=== PATIENT | male | born 1955 | race African-American/Black ===

== ENCOUNTER 2019-05-29 21:22 | Emergency (ER) | payer MEDICAID, OTHER ==
[~2019-05-29] VITALS: Ht 165.1 cm; Wt 47.6 kg
--- NOTE | 2019-05-29 21:30 | NUR ---
BIB EMS C/O HEADACHE X1 DAY, ABDOMINAL PAIN WITH N/V/D X4 DAYS. PT WAS SEEN AT [facility] FOR SAME COMPLAINT AND WAS D/C SAME DAY PER PT REPORT. PATIENT A/OX4, BREATHING EVEN AND UNLABORED, NO SOB NOTED, CHANGED INTO GOWN, ATTACHED TO THE B[employer] DES[employer] SALES CONSULTANT. KEPT COMFORTABLE.
--- NOTE | 2019-05-29 22:00 | NUR ---
IV LINE ESTABLISHED ON LEFT AC G18.
[2019-05-29] MEDS ORDERED: ONDANSETRON HCL/PF 4 MG/2 ML VIAL ONE (22:05)
[2019-05-29 22:14] LABS: BASOPHILS % (AUTO) 0.5 % (0.0-2.0); EOSINOPHILS % (AUTO) 1.4 % (0.0-6.0); HEMATOCRIT 38 % (39-51); HEMOGLOBIN 13.1 g/dL (13.5-17.5); LYMPHOCYTES # (AUTO) 2.4 /CMM (0.8-4.8); LYMPHOCYTES % (AUTO) 63.3 % (20.0-44.0); MEAN CORPUSCULAR HGB CONC 34 g/dl (31.0-36.0); MEAN CORPUSCULAR VOLUME 94 fL (80-96); MONOCYTES # (AUTO) 0.6 /CMM (0.1-1.30); MONOCYTES % (AUTO) 16.5 % (2.0-12.0); NEUTROPHILS # (AUTO) 0.7 /CMM (1.8-8.9); NEUTROPHILS % (AUTO) 18.3 % (43.0-81.0); PLATELET COUNT (AUTO) 187 /CMM (150-450); RED BLOOD CELL COUNT(AUTO) 4.09 MIL/uL (4.5-6.0); WHITE BLOOD COUNT (AUTO) 3.8 K/uL (4.3-11.0)
[2019-05-29 22:22] LABS: CALCIUM, SERUM 8.7 mg/dL (8.5-10.1); CREATININE 0.9 mg/dL (0.6-1.3); POTASSIUM 3.9 mmol/L (3.5-5.1)
[2019-05-29] MEDS ORDERED: IV NS 0.9% 250 ML IV ONE (22:25)
[2019-05-29] MEDS ORDERED: CT SWABBABLE VALVE TRANS SET 1 EA INFUS.SET MC ONE (22:25)
[2019-05-29] MEDS ORDERED: IOHEXOL-300 100 ML VIAL IV ONE (22:25)
[2019-05-29 22:27] LABS: ALBUMIN 2.9 g/dL (3.4-5.0); BILIRUBIN,DIRECT 0.3 mg/dL (0.0-0.2); BILIRUBIN,TOTAL 0.4 mg/dL (0.2-1.0); TOTAL PROTEIN, SERUM 7.9 g/dL (6.4-8.2)
[2019-05-29] MEDS ORDERED: ONDANSETRON HCL/PF 4 MG/2 ML VIAL IVP ONE (22:30)
[2019-05-29] MEDS ORDERED: IV NS 0.9% 1,000 ML BAG IV ONE (22:30)
--- NOTE | 2019-05-29 22:50 | NUR ---
PATIENT CAME BACK FROM CT.
[2019-05-29 23:21] LABS: NEUTROPHILS % (MANUAL) 15 (42-76)
[2019-05-29 23:22] LABS: LYMPHOCYTES % (MANUAL) 75 % (16-48); MONOCYTES % (MANUAL) 10 % (0-11.0)
[2019-05-29 23:57] VITALS: BP 172/79
--- NOTE | 2019-05-29 23:58 | NUR ---
IV removed. Catheter intact and site benign. Pressure and 4x4 applied to site. No bleeding noted.Patient given written and verbal discharge instructions. Patient verbalizes understanding of instructions. Patient respirations even & unlabored w/ no acute distress noted. Refuses offer of halfway placement, stating he has a place to go to on sunday. Patient given list of available shelters in surrounding area. All belongings returned to patient. Patient assisted back to w/c and is appropriately clothed for discharge. ID armband removed.
--- NOTE | 2019-05-29 23:58 | NUR ---
Note undone in EDM - 05/30/19 at 0013 by [email or web address] IV removed. Catheter intact and site benign. Pressure and 4x4 applied to site. No bleeding noted.Patient given written and verbal discharge instructions. Patient verbalizes understanding of instructions. Patient is ambulatory with steady gait. Refuses offer of [facility] placement, stating he has a place to go to on sunday. Patient given list of available shelters in surrounding area. All belongings returned to patient. Patient is appropriately clothed for discharge. ID armband removed.
== END 2019-05-30 00:14 | disposition home or self-care (01) ==
LOC: ER 21:24
DX: K52.9 Noninfective gastroenteritis and colitis, unspecified (principal); R51 Headache; I10 Essential (primary) hypertension; E11.9 Type 2 diabetes mellitus without complications
CPT/HCPCS: 36415; 74177; 80048; 80076; 83690; 85025; 96361; 96374; 99284; J2405; J7030; J7050; Q9967

== ENCOUNTER 2019-05-30 11:48 | Inpatient (IN) | payer OTHER ==
[2019-05-29 20:00] VITALS: BP 150/89
[~2019-05-30] VITALS: Ht 165.1 cm; Wt 65.8 kg
--- NOTE | 2019-05-30 11:57 | NUR ---
"BIBA RA 89 Homeless found near car rental c/o "Abdominal pain" PT AAOX2-3, PT ON MONITOR, VSS, TELMA IQBAL, PENDING MD NEVES
[2019-05-30 13:22] LABS: HEMOGLOBIN 13.2 g/dL (13.5-17.5); LYMPHOCYTES # (AUTO) 2.8 /CMM (0.8-4.8); MONOCYTES # (AUTO) 0.5 /CMM (0.1-1.30); NEUTROPHILS # (AUTO) 0.8 /CMM (1.8-8.9)
[2019-05-30] MEDS ORDERED: ONDANSETRON HCL/PF 4 MG/2 ML VIAL ONE (13:22)
[2019-05-30 13:30] LABS: BASOPHILS % (AUTO) 0.9 % (0.0-2.0); EOSINOPHILS % (AUTO) 1.1 % (0.0-6.0); HEMATOCRIT 39 % (39-51); LYMPHOCYTES % (AUTO) 65.7 % (20.0-44.0); MEAN CORPUSCULAR HGB CONC 34 g/dl (31.0-36.0); MEAN CORPUSCULAR VOLUME 95 fL (80-96); MONOCYTES % (AUTO) 12.7 % (2.0-12.0); NEUTROPHILS % (AUTO) 19.6 % (43.0-81.0); PLATELET COUNT (AUTO) 183 /CMM (150-450); RED BLOOD CELL COUNT(AUTO) 4.13 MIL/uL (4.5-6.0); WHITE BLOOD COUNT (AUTO) 4.3 K/uL (4.3-11.0)
[2019-05-30] MEDS ORDERED: IV NS 0.9% 1,000 ML BAG IV ONE (13:30)
[2019-05-30] MEDS ORDERED: ONDANSETRON HCL/PF 4 MG/2 ML VIAL IVP ONE (13:30)
[2019-05-30 13:35] LABS: CALCIUM, SERUM 8.6 mg/dL (8.5-10.1); CREATININE 0.6 mg/dL (0.6-1.3); POTASSIUM 3.7 mmol/L (3.5-5.1)
[2019-05-30 14:41] LABS: APPEARANCE,URINE Clear (CLEAR); BILIRUBIN,URINE SMALL (NEGATIVE); BLOOD, URINE Negative Ery/uL (NEGATIVE); COLOR,URINE Dark (YELLOW); KETONES,URINE Negative (NEGATIVE); LEUKOCYTE ESTERASE ,URINE Negative (NEGATIVE); NITRITE, URINE Negative (NEGATIVE); PROTEIN,URINE 30 mg/dl (NEGATIVE); UGLUCOSE Negative (NEGATIVE)
[2019-05-30 14:51] LABS: EOSINOPHILS % (MANUAL) 1 % (0-4); LYMPHOCYTES % (MANUAL) 65 % (16-48); MONOCYTES % (MANUAL) 14 % (0-11.0); NEUTROPHILS % (MANUAL) 20 (42-76)
[2019-05-30 15:24] LABS: BACTERIA,URINE Rare /HPF (None Seen); RBC,URINE 0-2 /HPF (0-2); SQUAMOUS EPITHELIAL CELL,UR Few /HPF (None Seen); WBC,URINE 0-2 /HPF (0-3)
--- NOTE | 2019-05-30 16:04 | NUR ---
PAGED [facility].
--- NOTE | 2019-05-30 16:11 | NUR ---
REPORT GIVEN TO STEPHEN OLMEDO FOR NIKOLAY
--- NOTE | 2019-05-30 17:02 | NUR ---
PT TRANSPORETD TO 1ST FLOOR VIA GURNEY.
[2019-05-30] MEDS ORDERED: ONDANSETRON HCL/PF 4 MG/2 ML VIAL IVP PRN (17:30)
[2019-05-30] MEDS ORDERED: POLYETHYLENE GLYCOL 3350 17 GM POWD.PACK PO PRN (17:30)
[2019-05-30] MEDS ORDERED: MAGNESIUM HYDROXIDE 30 ML UDC PO PRN (17:30)
[2019-05-30] MEDS ORDERED: ACETAMINOPHEN 325 MG TABLET PO PRN (17:30)
[2019-05-30] MEDS ORDERED: BISACODYL SUPP (10 MG) 10 MG/SUPP.RECT SUPP.RECT RC PRN (17:30)
[2019-05-30] MEDS ORDERED: MAG HYDROX/AL HYDROX/SIMETH 30 ML UDC PO PRN (17:30)
[2019-05-30] MEDS ORDERED: Z GUARD REMEDY 2 OZ OINT TP PRN (17:30)
--- NOTE | 2019-05-30 17:30 | NUR ---
RN OPENING NOTES RECEIVED PT VIA LIBBY FROM THE ED. HE IS AOX4, VERBAL, NON AMBULATORY. HE IS ON RA, TOLERATING WELL, SHOWS NO S/SX OF RESP DISSTRESS OR SOB. EYES ARE PERRLA. LUNG SOUNDS CLEAR IN ALL MALAVE. ABDOMEN IS DISTENDED, PT IS CONSTIPATED. PT SKIN IS INTACT, SLIGHT REDNESS ON BILATERAL THIGHS NEAR GROIN, PICTURE WAS TAKEN AND IS IN THE CHART. HEENT NORMAL. SAFETY MEASURES HAVE BEEN IMPLEMENTED, CALL LIGHT IS WITHIN REACH, BED IS IN LOWEST AND LOCKED POSITION, SIDE RAILS UP X2, WILL CONTINUE TO MONITOR FOR ANY CHANGES.
[2019-05-30] MEDS ORDERED: POLYETHYLENE GLYCOL 3350 17 GM POWD.PACK PO ONE (18:00)
[2019-05-30] MEDS ORDERED: BISACODYL SUPP (10 MG) 10 MG/SUPP.RECT SUPP.RECT RC ONE (18:00)
[2019-05-30] MEDS: IV NS 0.9% 1,000 ML IV PRN (18:07)
--- NOTE | 2019-05-30 19:46 | NUR ---
RN CLOSING NOTES PATIENT IS RESTING IN BED COMFORTABLY AT THIS TIME. HE DENIES ANY PAIN OR DISCOMFORT. NO ACUTE CHANGES OCCURRED THROUGHOUT THE DAY, VITAL SIGNS ARE STABLE, PT NEEDS HAVE BEEN MET. SAFETY MEASURES HAVE BEEN IMPLEMENTED, CALL LIGHT IS WITHIN REACH, BED IS IN LOWEST AND LOCKED POSITION, SIDE RAILS UP X2, PT HAS BEEN ENDORSED TO NIGHTSHIFT RN FOR CONTINUITY OF CARE.
[2019-05-30 20:00] VITALS: BP 174/111
[2019-05-31] MEDS ORDERED: hydrALAZINE HCL 25 MG TABLET PO PRN (00:30)
[2019-05-31 06:52] VITALS: BP 159/78
--- NOTE | 2019-05-31 07:24 | NUR ---
MS RN CLOSING NOTES: PATIENT IS RESTING COMFORTABLY IN BED. NO COMPLAIN OF PAIN. NO ACUTE EVENTS OVERNIGHT. RESTED THROUGHOUT THE NIGHT. BEDREST. VITALS STABLE. CALL LIGHT WITHIN REACH BED IN LOWEST AND LOCKED POSITION. BED ALARM ON.
[2019-05-31 07:25] LABS: BASOPHILS % (AUTO) 0.2 % (0.0-2.0); EOSINOPHILS % (AUTO) 0.8 % (0.0-6.0); HEMATOCRIT 38 % (39-51); HEMOGLOBIN 12.5 g/dL (13.5-17.5); LYMPHOCYTES # (AUTO) 2.8 /CMM (0.8-4.8); LYMPHOCYTES % (AUTO) 55.5 % (20.0-44.0); MEAN CORPUSCULAR HGB CONC 33 g/dl (31.0-36.0); MEAN CORPUSCULAR VOLUME 94 fL (80-96); MONOCYTES # (AUTO) 0.7 /CMM (0.1-1.30); MONOCYTES % (AUTO) 13.9 % (2.0-12.0); NEUTROPHILS # (AUTO) 1.5 /CMM (1.8-8.9); NEUTROPHILS % (AUTO) 29.6 % (43.0-81.0); PLATELET COUNT (AUTO) 176 /CMM (150-450); RED BLOOD CELL COUNT(AUTO) 4.02 MIL/uL (4.5-6.0); WHITE BLOOD COUNT (AUTO) 5.1 K/uL (4.3-11.0)
--- NOTE | 2019-05-31 07:28 | NUR ---
RN OPENING NOTES RECEIVED PATIENT SLEEPING IN BED COMFORTABLY, EASILY AROUSED. HE IS AOX4, VERBAL, AND NONAMBULATORY. HE IS ON RA, TOLERATING WELL, SHOWS NO S/SX OF RESP DISTRESS OR SOB. SKIN IS INTACT, ASIDE FROM REDNESS ON BILATERAL THIGHS. HE HAS A R HAND 20 G INFUSING NS AT 75 ML/HR. SAFETY MEASURES HAVE BEEN IMPLEMENTED, CALL LIGHT IS WITHIN REACH, BED IS IN LOWEST AND LOCKED POSITION, SIDE RIALS UP X2, WILL CONTINUE TO MONITOR FOR ANY CHANGES.
[2019-05-31 07:44] LABS: ALBUMIN 2.6 g/dL (3.4-5.0); BILIRUBIN,TOTAL 0.6 mg/dL (0.2-1.0); CALCIUM, SERUM 8.2 mg/dL (8.5-10.1); CREATININE 0.7 mg/dL (0.6-1.3); MAGNESIUM 1.9 mg/dL (1.8-2.4); PHOSPHORUS 3.2 mg/dL (2.5-4.9); POTASSIUM 3.6 mmol/L (3.5-5.1); TOTAL PROTEIN, SERUM 7.4 g/dL (6.4-8.2)
[2019-05-31 08:00] VITALS: BP 160/97
[2019-05-31] MEDS: IV NS 0.9% 1,000 ML IV PRN (08:16)
[2019-05-31] MEDS: DOCUSATE SODIUM 100 MG CAPSULE PO SCH ×3 (08:17→18:40)
[2019-05-31 16:00] VITALS: BP 162/94
--- NOTE | 2019-05-31 18:45 | NUR ---
pt has been discharged via emt and ambulance. she was transferred to [facility]. transfer report was given. exit care was utilized during dc. daughter was notified of discharge. iv sites were left intact Addendum: 05/31/19 at 1941 by LILY CEVALLOS RN DOCUMENTED FOR WRONG PATIENT. PATIENT IS STILL IN HOSPITAL
--- NOTE | 2019-05-31 19:42 | NUR ---
RN CLOSING NOTES PATIENT IS RESTING IN BED COMFORTABLY AT THIS TIME, DENIES ANY PAIN OR DISCOMFORT AT THIS TIME. NO ACUTE CHANGES OCCURRED THROUGHOUT THE DAY, VITAL SIGNS STABLE, PT NEEDS HAVE BEEN MET. SAFETY MEASURES HAVE BEEN IMPLEMENTED, CALL LIGHT IS WITHIN REACH, BED IS IN LOWEST AND LOCKED POSITION, SIDE RAILS UP X2, PT HAS BEEN ENDORSED TO NIGHTSHIFT RN FOR CONTINUITY OF CARE.
[2019-05-31 20:00] VITALS: BP 157/99
[2019-06-01 04:00] VITALS: BP 161/99
[2019-06-01 08:00] VITALS: BP 126/72
[2019-06-01] MEDS: DOCUSATE SODIUM 100 MG CAPSULE PO SCH ×2 (09:00→17:00)
[2019-06-01 12:00] VITALS: BP 126/72
--- NOTE | 2019-06-01 14:58 | NUR ---
MS RN NOTES PT REFUSED TAKING PICTURE OF THE GROIN AREA FOR RECORD.
[2019-06-01 16:00] VITALS: BP 130/68
--- NOTE | 2019-06-01 17:00 | NUR ---
MS RN NOTES PT IS DISCHARGED BY DR AMANDA AND HE REFUSES TO LEAVE THE FACILITY AND COMPLAINING OF LEG WEAKNESS AND PAIN. DR AMANDA WAS NOTIFIED.
--- NOTE | 2019-06-01 19:20 | NUR ---
MS RN NOTES PT IS IN BED AWAKE A/OX4 . HE STILL REFUSES TO LEAVE THE FACILITY. IV SITE IS PATENT AND FLUSHED WELL. ALL NEEDS ATTENDED. BED AT THE LOWEST POSITION AND LOCKED. CALL LIGHT WITHIN REACH. ENDORSED TO HEAD AND NECK SURGEON NURSE FOR NIKOLAY.
[2019-06-01 20:00] VITALS: BP 127/64
--- NOTE | 2019-06-01 20:46 | NUR ---
MS RN NOTES PT IN BED A/OX3. NO SIGNS OF SOB OR DISCOMFORT NOTE AT THIS TIME. BED LOCKED AT THE LOWEST POSITION AND CALL LIGHT WITHIN REACH. WILL CONTINUE TO MONITOR.
[2019-06-02 04:00] VITALS: BP 152/99
[2019-06-02] MEDS: DOCUSATE SODIUM 100 MG CAPSULE PO SCH (09:00)
--- NOTE | 2019-06-02 10:05 | NUR ---
Social service consult requested by Dr. Miranda for homelessness. Pt. is a 63 year old paraplegic, wheelchair bound -[place] male who was admitted to [facility] for AMS and vomiting. QUINTON and adult protective caseworker Patrick met with the pt. bedside. Pt. was discharged as of yesterday, however, at time of discharge pt. stated his legs are hurting. Pt. was held overnight. Pt. is alert and oriented x 4. Pt. has his wheelchair bedside. Pt. is HIV positive and gets his medications and sees his doctor at [facility] in [place]. Pt. couldn't provide address to the [facility] clinic. Pt. states he is complaint with his medications. Pt. is wheelchair bound. Pt. receives $900/ month in SSI. Pt. denies any drugs and alcohol use. Pt. smokes cigarettes occasionally. Pt. has a psychiatric diagnosis of Depression and Bipolar Disorder. Pt. denies any suicidal and homicidal ideations at this time. Pt. is requesting placement. QUINTON and adult protective caseworker to locate a Board and care for the pt. Pt. states he is willing to pay $900 for accommodations.
--- NOTE | 2019-06-02 15:05 | NUR ---
QUINTON and director of casework met with pt. again. Pt. does not have the funds to pay for a board and care. Pt. wants to go back to [place], and follow up with his [facility] clinic. Pt. was provided with homeless referrals and [facility] program information. Homeless patient waiver form was signed by the pt. and was placed in pt's chart. Addendum: 06/02/19 at 1508 by GLENDA ALCANTARA TAP card was provided to the pt.
== END 2019-06-02 15:00 | disposition home or self-care (01) | DRG 254 ==
LOC: ER 11:49 → MEDSG1 15:38
PROVIDERS: ADMIT Internal Medicine; ATTEND Internal Medicine
DX: K59.9 Functional intestinal disorder, unspecified (principal); D70.9 Neutropenia, unspecified; G82.20 Paraplegia, unspecified; E11.9 Type 2 diabetes mellitus without complications; A08.4 Viral intestinal infection, unspecified; I10 Essential (primary) hypertension; J44.9 Chronic obstructive pulmonary disease, unspecified; K63.89 Other specified diseases of intestine; K59.00 Constipation, unspecified; Z99.3 Dependence on wheelchair; Z91.14 Patient's other noncompliance with medication regimen; Z59.0 Homelessness; F14.10 Cocaine abuse, uncomplicated; F10.10 Alcohol abuse, uncomplicated
CPT/HCPCS: 36415; 71045-TC; 80048-TC; 80053-TC; 80061-TC; 80305; 81000-TC; 83735-TC; 84100-TC; 85025-TC; 87081-TC; 87086-TC; 97530-TC; G0378; G0480; J2405; J7030